=== PATIENT | female | born 1940 | race Caucasian/White ===

== ENCOUNTER 2024-10-27 11:26 | Emergency (ER) | payer MEDICARE, OTHER ==
[~2024-10-27] VITALS: Wt 73.5 kg
[2024-10-27] MEDS ORDERED: Ondansetron 4 MG/2 ML VIAL IV ONE (12:00)
[2024-10-27 12:16] LABS: BASO # 0.01 K/mm3 (0.02-0.10); EOS # 0.08 K/mm3 (0.04-0.40); EOS % 1.5 % (1.0-5.0); HEMATOCRIT 37.5 % (37.0-47.0); HEMOGLOBIN 12.6 g/dL (12.5-16.0); LYMPH# 1.41 K/mm3 (1.50-4.00); MEAN CELL VOLUME 89 fl (78-100); MEAN CORPUSCULAR HEMOGLOBIN 30 pg (27-31); MEAN CORPUSCULAR HGB CONC 34 g/dL (33-37); MEAN PLATELET VOLUME 8.6 fl (7.4-10.4); MONO # 0.68 K/mm3 (0.20-0.80); NEU # 3.08 K/mm3 (1.40-6.50); PLATELET COUNT 253 K/mm3 (130-400); RED CELL DISTRIBUTION WIDTH 12.9 % (11.5-14.5); WHITE BLOOD COUNT 5.3 K/mm3 (4.8-10.8)
[2024-10-27 12:22] LABS: ALBUMIN 4.1 g/dL (3.4-4.8)
[2024-10-27 12:23] LABS: CALCIUM 10.4 mg/dL (8.3-10.5)
[2024-10-27 12:26] LABS: TOTAL BILIRUBIN 0.5 mg/dL (0.2-1.2)
[2024-10-27] MEDS ORDERED: DIPENTUM PO (12:32)
[2024-10-27] MEDS ORDERED: ADULT ASPIRIN R81 MG PO (12:32)
[2024-10-27] MEDS ORDERED: DITROPAN 5MG TAB5 MG PO (12:33)
[2024-10-27] MEDS ORDERED: COLACE100 M1 PO (12:33)
[2024-10-27] MEDS ORDERED: FEBUXOSTAT40 MG PO (12:34)
[2024-10-27] MEDS ORDERED: [UNRECOGNIZED DRUG - OTHER] PO (12:35)
[2024-10-27] MEDS ORDERED: LOSARTAN POTASS50 M1 PO (12:35)
[2024-10-27 12:55] LABS: PH-URINE 5.5 (5.0 - 8.0); URINE APPEARANCE CLOUDY (CLEAR); URINE BILIRUBIN NEGATIVE (NEGATIVE); URINE COLOR YELLOW (YELLOW); URINE GLUCOSE NEGATIVE (NEGATIVE); URINE KETONE TRACE (NEGATIVE)
[2024-10-27 12:56] LABS: URINE BLOOD TRACE (NEGATIVE); URINE LEUKOCYTE ESTERASE 1+ (NEGATIVE); URINE NITRATE POSITIVE (NEGATIVE); URINE WBC >50 /hpf (0-3)
[2024-10-27 13:16] LABS: URINE PROTEIN(semi-quant) NEGATIVE (NEGATIVE)
[2024-10-27] MEDS ORDERED: hydrOXYzine HCl 25 MG TAB PO ONE (13:30)
[2024-10-27] MEDS ORDERED: Ciprofloxacin 250 MG TAB PO ONE (13:45)
[2024-10-27] MEDS ORDERED: Iohexol 350 - 100 ML VIAL IV ONE (14:52)
[2024-10-27 19:19] VITALS: BP 101/57
== END 2024-10-27 19:19 | disposition short-term general hospital (02) ==
LOC: ED 11:26
PROVIDERS: Physician Assistant
DX: N39.0 Urinary tract infection, site not specified (principal); F41.9 Anxiety disorder, unspecified; Z79.82 Long term (current) use of aspirin; E87.1 Hypo-osmolality and hyponatremia; R41.0 Disorientation, unspecified; R33.9 Retention of urine, unspecified; Z91.040 Latex allergy status
CPT/HCPCS: J2405; Q0177; Q9967

== ENCOUNTER → 2024-11-05 | Outpatient (REF) | payer MEDICARE, OTHER ==
[~2024-11-05] MED LIST: ADULT ASPIRIN R81 MG PO; COLACE100 M1 PO; DIPENTUM PO; DITROPAN 5MG TAB5 MG PO; FEBUXOSTAT40 MG PO; LOSARTAN POTASS50 M1 PO; [UNRECOGNIZED DRUG - OTHER] PO
== END ==
LOC: LAB 16:31
DX: Z01.89 Encounter for other specified special examinations (principal)

== ENCOUNTER → 2024-11-08 | Outpatient (REF) | payer MEDICARE, OTHER ==
[2024-11-08 14:54] LABS: CALCIUM 9.2 mg/dL (8.3-10.5)
== END ==
LOC: LAB 14:25
DX: R29.6 Repeated falls (principal)

== ENCOUNTER → 2024-11-17 | Outpatient (REF) | payer MEDICARE, OTHER ==
[2024-11-17 16:44] LABS: BASO # 0.01 K/mm3 (0.02-0.10); EOS # 0.07 K/mm3 (0.04-0.40); HEMATOCRIT 33.3 % (37.0-47.0); HEMOGLOBIN 11.4 g/dL (12.5-16.0); LYMPH# 1.49 K/mm3 (1.50-4.00); MEAN CELL VOLUME 87 fl (78-100); MEAN CORPUSCULAR HEMOGLOBIN 30 pg (27-31); MEAN CORPUSCULAR HGB CONC 34 g/dL (33-37); MEAN PLATELET VOLUME 9.5 fl (7.4-10.4); MONO # 0.57 K/mm3 (0.20-0.80); NEU # 4.82 K/mm3 (1.40-6.50); PLATELET COUNT 294 K/mm3 (130-400); RED BLOOD COUNT 3.81 M/mm3 (4.10-5.30)
[2024-11-17 16:59] LABS: CALCIUM 9.1 mg/dL (8.3-10.5)
== END ==
LOC: LAB 16:03
PROVIDERS: Family Medicine
DX: D63.8 Anemia in other chronic diseases classified elsewhere (principal); E87.1 Hypo-osmolality and hyponatremia; M10.9 Gout, unspecified

== ENCOUNTER → 2024-11-24 | Outpatient (REF) | payer MEDICARE, OTHER ==
[2024-11-24 11:45] LABS: CALCIUM 9.5 mg/dL (8.3-10.5)
== END ==
LOC: LAB 10:54
PROVIDERS: Family Medicine
DX: E87.1 Hypo-osmolality and hyponatremia (principal)